=== PATIENT | female | born 1940 | race African-American/Black ===

== ENCOUNTER 2021-10-12 09:46 | Emergency (ER) | payer OTHER, MEDICAID ==
[~2021-10-12] VITALS: Ht 165.1 cm; Wt 59.0 kg
[2021-10-12] MEDS ORDERED: KETOROLAC 30MG/ML VIAL IV ONE (12:15)
[2021-10-12 12:25] LABS: BASOPHILS % 0.3 % (0.0-2.0); EOSINOPHILS % 0.3 % (0.0-5.0); HEMATOCRIT. 41.4 % (36.0-48.0); HEMOGLOBIN. 13.6 g/dL (12.0-16.0); LYMPHOCYTES % 22.9 % (20.0-50.0); MEAN CORPUSCULAR HEMOGLOBIN 29.5 pg (28.0-32.0); MEAN CORPUSCULAR VOLUME 89.4 fL (81.0-99.0); MEAN PLATELET VOLUME 10.2 fl (7.4-10.4); MONOCYTES % 8.8 % (2.0-8.0); NEUTROPHILS % 67.7 % (40.0-76.0); PLATELET 276 x1000/uL (130-400); RED BLOOD CELL COUNT 4.63 mill/uL (4.2-5.4)
[2021-10-12 12:31] LABS: CHLORIDE 107 mEq/L (98-107)
[2021-10-12] MEDS ORDERED: POTASSIUM CHLORIDE 20MEQ TABLET SR PO ONE (14:00)
[2021-10-12 15:00] LABS: CLARITY URINE CLEAR (CLEAR); COLOR URINE DARK YELLOW (YELLOW); KETONES URINE 3+ (NEGATIVE); LEUKOCYTE ESTERASE URINE 2+ (NEGATIVE); NITRITE URINE NEGATIVE (NEGATIVE); OCCULT BLOOD URINE NEGATIVE (NEGATIVE); PH URINE 7.5 (4.5-8.0); PROTEIN URINE 1+ (NEGATIVE)
[2021-10-12] MEDS ORDERED: IBUP-2028 MT (15:38)
[2021-10-12] MEDS ORDERED: NITR-87 MT (15:38)
[2021-10-12] MEDS ORDERED: NITROFURANTOIN 100MG M/M CAPSULE PO ONE (15:45)
[2021-10-12 16:00] VITALS: BP 163/78
== END 2021-10-12 17:45 | disposition home or self-care (01) ==
LOC: ER 09:46
DX: N39.0 Urinary tract infection, site not specified (principal); R53.1 Weakness; I10 Essential (primary) hypertension; Z20.822 Contact with and (suspected) exposure to COVID-19
CPT/HCPCS: 36415; 71045; 80053; 81003; 83605; 83690; 83880; 84484; 85025; 86850; 86870; 86900; 86901; 87086; 87426; 93005; 96374; 99285; J1885